=== PATIENT | female | born 1995 ===

== ENCOUNTER 2018-02-20 17:27 | Inpatient (IN) | payer OTHER ==
[~2018-02-20] VITALS: Ht 165.1 cm; Wt 64.9 kg
[2018-02-20] MEDS ORDERED: PRENATABS RX T1 EACH PO (19:20)
== END 2018-02-26 14:19 | disposition home or self-care (01) | DRG 781 ==
LOC: LDR 17:27 → OB/GYN 02-21 17:41
PROC: BY4FZZZ Ultrasonography of Third Trimester, Single Fetus (ICD-10-PCS; principal; 2018-02-20)
PROC: BT4JZZZ Ultrasonography of Kidneys and Bladder (ICD-10-PCS; 2018-02-20)
PROC: 4A1HXCZ Monitoring of Products of Conception, Cardiac Rate, External Approach (ICD-10-PCS; 2018-02-20)
DX: O23.03 Infections of kidney in pregnancy, third trimester (principal); O47.03 False labor before 37 completed weeks of gestation, third trimester; B95.62 Methicillin resistant Staphylococcus aureus infection as the cause of diseases classified elsewhere

== ENCOUNTER 2018-05-14 06:22 | Inpatient (IN) | payer OTHER ==
[~2018-05-14] VITALS: Ht 165.1 cm; Wt 69.9 kg
[~2018-05-14 06:22] MED LIST: PRENATABS RX T1 EACH PO
== END 2018-05-16 11:29 | DRG 774 ==
LOC: LDR 06:22 → OB/GYN 06:22
PROC: 10E0XZZ Delivery of Products of Conception, External Approach (ICD-10-PCS; principal; 2018-05-14)
PROC: 4A1HXCZ Monitoring of Products of Conception, Cardiac Rate, External Approach (ICD-10-PCS; 2018-05-14)
PROC: 0W8NXZZ Division of Female Perineum, External Approach (ICD-10-PCS; 2018-05-14)
PROC: 4A033R1 Measurement of Arterial Saturation, Peripheral, Percutaneous Approach (ICD-10-PCS; 2018-05-14)
DX: O14.23 HELLP syndrome (HELLP), third trimester (principal); Z3A.39 39 weeks gestation of pregnancy; Z37.0 Single live birth

== ENCOUNTER 2021-11-21 13:15 | Inpatient (IN) | payer OTHER ==
[2021-11-29] MEDS ORDERED: IRON240 MG (08:27)
[2021-11-29] MEDS ORDERED: FOLIC ACID20 MG (08:28)
[2021-11-29] MEDS ORDERED: ADULT LOW DOSE81 M1 PO (08:28)
== END 2021-12-01 13:37 | disposition home or self-care (01) | DRG 807 ==
LOC: LDR 11-29 06:32 → OB/GYN 11-29 06:32
PROVIDERS: ADMIT Obstetrics & Gynecology; ATTEND Obstetrics & Gynecology
PROC: 10E0XZZ Delivery of Products of Conception, External Approach (ICD-10-PCS; principal; 2021-11-29)
PROC: 4A1HXCZ Monitoring of Products of Conception, Cardiac Rate, External Approach (ICD-10-PCS; 2021-11-29)
DX: O80 Encounter for full-term uncomplicated delivery (principal); Z37.0 Single live birth; Z3A.39 39 weeks gestation of pregnancy; Z20.822 Contact with and (suspected) exposure to COVID-19